=== PATIENT | male | born 1950 | race Caucasian/White ===

== ENCOUNTER → 2017-01-04 | Outpatient (CLI) | payer OTHER ==
[~2017-01-04] VITALS: Ht 190.5 cm; Wt 122.5 kg
[~2017-01-04] MED LIST: ALDACTONE25 MG PO; ANORO ELLIPTA1 EACH IH; ASPIR 8181 MG PO; ASPIRIN81 M2 PO; ATORVASTATIN CA40 MG PO; AUGMENTIN 875875 M1 PO; BENICAR20 MG PO; CARVEDILOL25 MG PO; CEPHALEXIN 500500 M1 PO; COLACE100 MG PO; DEMADEX20 MG PO; FARXIGA10 MG PO; FLEXERIL PO; FLOMAX0.4 MG PO; GLUCOSAMINE CH1 EACH PO; GLYXAMBI 10 MG1 EACH PO; HYDROCODON-ACE1 EAC7 PO; IBUPROFEN 800800 M1 PO; JANUVIA50 MG PO; KEFLEX250 MG PO; LISINOPRIL20 MG PO; LORTAB 5 MG/5001 TA1; METFORMIN HCL500 MG PO; MEXILETINE 150150 MG PO; NEURONTIN 300300 M1 PO; PACERONE 200 M200 M1 PO; POTASSIUM20 PO; PROAIR HFA8.5 GM INH; PROTONIX 20 MG20 M1 PO; SAVAYSA60 MG PO; SIMVASTATIN40 MG PO; TRAMADOL 50 MG50 MG PO; VITAMIN D1000 UNIT PO; ZANAFLEX4 M1 PO; ZANTAC 150MG T150 MG PO
--- NOTE | ~2017-01-04 | CATHLAB ---
[facility] [place] [address] INVASIVE PROCEDURE REPORT Name: KALAANIBAL DANIELE Room #: REG [facility]#: [id number] Admission: 01/04/17 Attend Phys: Joni Panchal MD Discharge: Date of : 54 Date of Service: 01/04/17 0925 Report #: [id number] THIS REPORT FOR: //name// CC: Joni Fischer DATE OF SERVICE: 01/04/2017 CARDIAC CATHETERIZATION REPORT INDICATION: Ventricular tachycardia. Full risks, benefits and alternatives of cardiac catheterization were explained to the patient. All questions were answered. Informed consent was obtained. A Barbeau test was performed on the right radial artery. A 5-Malagasy sheath was inserted into the right radial artery via a modified Seldinger technique. Nitroglycerin and verapamil were injected through the sheath. Heparin 5000 units were given through a peripheral IV. The left main artery is a large caliber vessel, with no flow-limiting lesions. The LAD has a total occlusion in the proximal segment. The distal segment of the LAD is partially filled via collateral circulation. This is unchanged from prior procedures. The left circumflex artery is a lftcfcid-dz-umrwk-sized caliber vessel, dominant as it supplies the PDA. There is mild disease in the left circumflex artery. There are 3 obtuse marginal arteries of moderate-sized caliber. The first OM has jzjn-nt-mhzffwra disease proximally, 40%. The second and third obtuse marginal arteries are patent with mild disease. The left PDA has a total occlusion at the ostium. The mid and distal segments of the left PDA are filled via collateral circulation. This is unchanged from prior procedures. The RCA is a small, nondominant vessel with a total occlusion proximally. This is unchanged from prior procedures. The LVEDP is approximately 40 mmHg. The patient tolerated the procedure without any complications. There is no gradient across the outflow tract. A ventriculogram was not performed in view of elevated creatinine level. IMPRESSION: 1. Total occlusion of the proximal left anterior descending with partial [facility] [address] [place] [address] INVASIVE PROCEDURE REPORT Name: ANIBAL ARMENDARIZ Room #: REG [facility]#: [id number] Admission: 01/04/17 Attend Phys: Joni Panchal MD Discharge: Date of : 54 Date of Service: 01/04/17 0925 Report #: [id number] collateral flow. This is unchanged from prior procedures. 2. Left dominant system with patent obtuse marginal arteries. 3. A 100% occlusion of a small left posterior descending artery, with collateral filling of the distal segment. This is unchanged from prior procedures. 4. Total occlusion of a small, nondominant right coronary artery, unchanged from prior procedures. 5. Recommend medical therapy. <ELECTRONICALLY SIGNED> By: Joni Panchal MD 01/05/17 0752 0925 1217 MD carina Grewal
[2017-01-04 07:00] VITALS: BP 138/77
== END | disposition home or self-care (01) ==
LOC: CATH 06:33
DX: I25.10 Atherosclerotic heart disease of native coronary artery without angina pectoris (principal); I65.21 Occlusion and stenosis of right carotid artery; J44.9 Chronic obstructive pulmonary disease, unspecified; I10 Essential (primary) hypertension; E78.00 Pure hypercholesterolemia, unspecified; I48.92 Unspecified atrial flutter; K21.9 Gastro-esophageal reflux disease without esophagitis; E11.9 Type 2 diabetes mellitus without complications; I25.2 Old myocardial infarction; F17.210 Nicotine dependence, cigarettes, uncomplicated

== ENCOUNTER → 2017-06-20 | Outpatient (CLI) | payer OTHER ==
--- NOTE | ~2017-06-20 | 2DMMODE ---
[facility] [place] [address] 2 D/M-MODE ECHOCARDIOGRAM Name: KALAANIBAL DANIELE Room #: REG [facility]#: [id number] Admission: 06/20/17 Attend Phys: Pradeep Peterson Discharge: Date of : 54 Date of Service: 06/20/17 1238 Report #: [id number] THIS REPORT FOR: //name// APPROVED REPORT Study performed: 06/20/2017 11:04:51 EXAM: Comprehensive 2D, Doppler, and color-flow Echocardiogram Patient Location: Out-Patient Status: routine BSA: 2.54 HR: 62 bpm BP: 158/88 mmHg Rhythm: Pacemaker Other Information Study Quality: GoodAdequate Technically limited study due to body habitus, lung disease. Indications COPD Pacemaker Cardiomyopathy Hx: PVD. Echo Enhancing Agent Indication: Endocardial border delineation Agent(s) / Amount(s) Used: Optison 3 cc 2D Dimensions RVDd: 49.34 mm LVEF(%): 49.24 (>50%) IVSd: 13.27 (7-11mm) LVOT Diam: 24.47 (18-24mm) LVDd: 61.32 mm PWd: 13.01 (7-11mm) LVDs: 45.73 (25-40mm) Aortic Root: 34.41 mm Stuart's LVEF: 49.24 % Volumes Left Atrial Volume (Systole) Single Plane 4CH: 130.60 mL Single Plane 2CH: 116.67 mL LA ESV Index: 55.00 mL/m2 [facility] [address] [place] [address] 2 D/M-MODE ECHOCARDIOGRAM Name: ANIBAL ARMENDARIZ Room #: REG CL Tom[facility]#: [id number] Admission: 06/20/17 Attend Phys: Pradeep Baychonndc Discharge: Date of : 54 Date of Service: 06/20/17 1238 Report #: [id number] Aortic Valve AoV Peak Eliu.: 1.15 m/s AO Peak Gr.: 5.25 mmHg LVOT Max P.03 mmHg LVOT Max V: 0.87 m/s SAMI Vmax: 3.57 cm2 Mitral Valve E/A Ratio: 0.8 MV Decel. Time: 261.09 ms MV E Max Eliu.: 0.78 m/s MV A Eliu.: 0.98 m/s MV PHT: 75.72 ms IVRT: 92.27 ms Pulmonary Valve PV Peak Eliu.: 1.02 m/s PV Peak Gr.: 4.35 mmHg Pulmonary Vein P Vein S: 0.52 m/s P Vein A: 0.25 m/s P Vein D: 0.45 m/s P Vein A Dur.: 143.0 msec P Vein S/D Ratio: 1.16 Tricuspid Valve TR Peak Eliu.: 2.65 m/s RAP Estimate: 5.00 mmHg TR Peak Gr.: 28.06 mmHg PA Pressure: 33.00 mmHg Left Ventricle Left ventricle is dilated. Mild concentric left ventricular hypertrophy. Left ventricular systolic function is severely decreased. LVEF is 30%. Grade I - abnormal relaxation pattern. Right Ventricle Right ventricle is dilated. The right ventricular systolic function is normal. Device lead is present in the right ventricle. Atria Left atrium is moderately dilated. Right atrium is mildly dilated. Aortic Valve The aortic valve is normal in structure. No aortic regurgitation is present. There is no aortic valvular stenosis. Mitral Valve There is mitral annular calcification. The mitral valve is normal in [address] [address] 2 D/M-MODE ECHOCARDIOGRAM Name: KALAANIBAL SANABRIA [id number] Admission: 06/20/17 Attend Phys: [facility] Discharge: Date of : 54 Date of Service: 06/20/17 1238 Report #: [id number] structure and function. Mild mitral regurgitation. No evidence of mitral valve stenosis. Tricuspid Valve The tricuspid valve is normal in structure. Trace tricuspid regurgitation with an estimated PAP of 33 mmHg. Pulmonic Valve Pulmonic valve is not well visualized. There is no pulmonic valvular regurgitation. Great Vessels The aortic root is normal in size. IVC is normal in size and collapses >50% with inspiration. Pericardium There is no pericardial effusion. <Conclusion> Left ventricle is dilated. Left ventricular systolic function is severely decreased. LVEF is 30%. Right ventricle is dilated. Device lead is present in the right ventricle. Left atrium is moderately dilated. Right atrium is mildly dilated. The aortic valve is normal in structure. There is mitral annular calcification. The mitral valve is normal in structure and function. Mild mitral regurgitation. The tricuspid valve is normal in structure. Trace tricuspid regurgitation with an estimated PAP of 33 mmHg. Pulmonic valve is not well visualized. <ELECTRONICALLY SIGNED> By: Albino Bettencourt MD 06/20/17 1238 1238 1238 Albino Bettencourt MD /INF
== END ==
LOC: CV 10:50
DX: I25.5 Ischemic cardiomyopathy (principal)

== ENCOUNTER 2017-11-05 11:40 | Inpatient (IN) | payer OTHER ==
[2017-11-05] VITALS (7 sets, daily range): BP systolic 130–180; BP diastolic 56–89
[~2017-11-05] VITALS: Ht 190.5 cm; Wt 128.1 kg
--- NOTE | ~2017-11-05 | EKG ---
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 : 1950 Requested By: Sierra Ramirez Order Number: [id number] MD: Brian Carodza Measurements Intervals [place] Rate: 66 P: 38 NH: 182 QRS: -34 QRSD: 131 T: 138 QT: 440 QTc: 461 Interpretive Statements Sinus rhythm Left bundle branch block Compared to ECG 08/27/2015 14:22:50 Left bundle-branch block now present Electronically Signed On 11-05-2017 14:17:20 NURSE ESTHETICIAN by Brian Cardoza [email or web address] <ELECTRONICALLY SIGNED> By: Brian Cardoza MD, [facility] 11/05/17 1417 1151 1151 Brian Cardoza MD, FACC /EPI
--- NOTE | ~2017-11-05 | HC ---
[facility] [place] [address] CONSULTATION Name: ANIBAL ARMENDARIZ Room #: 203-P [facility] IN M.R.#: [id number] Admission: 11/05/17 Attend Phys: Casa Arriaga MD Discharge: 11/07/17 Date of : 54 Report #: [id number] THIS REPORT FOR: //name// CC: ILDA physician/PCP Casa Arriaga DATE OF SERVICE: 11/06/2017 REASON FOR CONSULTATION: ICD shock. HISTORY OF PRESENT ILLNESS: The patient is a patient who I follow with Dr. Panchal in clinic. He has a history of an ischemic cardiomyopathy, status post [employer] ICD as well as ventricular arrhythmias. In the past, he was on mexiletine and had breakthrough, so he was switched to amiodarone and in May, he had an ICD shock for VT, VF. He presents again after being at home and having a syncopal episode. The patient reports that he has been profoundly weak with back pain and was trying to get into his truck, got very angry and was trying to crawl back to the house when he passed out and got shocked. Device interrogation demonstrates that this correlated with an episode of VT with a cycle length of 360 milliseconds, which degenerated VF, failed ATP and then required an ICD shock with successful roman catholic of sinus rhythm. The patient denies any chest pain. He does have chronic shortness of breath. He denies PND or orthopnea. He denies any other syncopal episodes. PAST MEDICAL HISTORY: 1. Coronary artery disease. 2. Ischemic cardiomyopathy. 3. Diabetes. 4. Peripheral vascular disease. 5. Hypertension. 6. Paroxysmal AFib. 7. COPD. 8. Chronic renal insufficiency. SOCIAL HISTORY: He still smokes. FAMILY HISTORY: Noncontributory. ALLERGIES: None. MEDICATIONS: Include amiodarone 400 a day, Eliquis, aspirin, Lipitor, Coreg 25 a day, Entresto, Aldactone and torsemide. REVIEW OF SYSTEMS: A 12-point review of systems was performed and was negative other than what I mentioned above. [facility] [address] [place] [address] CONSULTATION Name: KALAANIBAL Room #: 203-P [facility] IN ..#: [id number] Admission: 11/05/17 Attend Phys: Casa Arriaga MD Discharge: 11/07/17 Date of : 54 Report #: [id number] PHYSICAL EXAMINATION: VITAL SIGNS: Temperature 36.7, pulse 70, respirations 18, blood pressure 110/57, and sats 97%. GENERAL: He is in no acute distress. HEENT: Oropharynx is clear. NECK: Supple. No thyromegaly. HEART: Regular rate and rhythm with normal S1 and S2. No S3, S4. LUNGS: Clear to auscultation bilaterally. ABDOMEN: Soft, nontender, and nondistended. EXTREMITIES: There is no clubbing, cyanosis, or edema. NEUROLOGIC: Cranial nerves 2-12 are intact. LABS: White count 12, hemoglobin 14, and platelets 101. Chemistries: Sodium 141, potassium 4.3, BUN 41, and creatinine 2.5. Troponins are negative times 2. ASSESSMENT AND PLAN: 1. Recurrent ventricular tachycardia. 2. ICD shock. 3. Coronary artery disease. 4. Ischemic cardiomyopathy. 5. Acute on chronic renal insufficiency. In summary, the patient is a 67-year-old with severe ischemic cardiomyopathy and recurrent ventricular arrhythmias despite amiodarone therapy. I recommended that general cardiology optimize his cardiac meds including beta blockers and Entresto. With regards to his ventricular arrhythmias, we will continue with amiodarone 400 mg a day and add a low dose mexiletine 200 mg twice a day. We will continue to follow. <ELECTRONICALLY SIGNED> By: Pradeep Peterson MD 12/07/17 1753 0825 1018 Pradeep Peterson MD /nt
--- NOTE | ~2017-11-05 | HC ---
[facility] [place] [address] CONSULTATION Name: ANIBAL ARMENDARIZ Room #: 203-P [facility] IN M.R.#: [id number] Admission: 11/05/17 Attend Phys: Casa Arriaga MD Discharge: 11/07/17 Date of : 54 Report #: [id number] THIS REPORT FOR: //name// CC: FAM physician/PCP Casa Arriaga DATE OF SERVICE: 11/06/2017 ATTENDING PHYSICIAN: Dr. Panchal. REASON FOR CONSULTATION: Acute on chronic kidney disease. HISTORY OF PRESENT ILLNESS: This 67-year-old gentleman with severe ischemic cardiomyopathy and diabetic nephropathy, has had recurrent ventricular fibrillation with AICD discharge most recently yesterday, was admitted to the hospital with creatinine, which at baseline apparently is about 2 was up to 3.4, but back down to 2.5 today. Of note, the patient had been started on diclofenac over the last 2 weeks and that was stopped yesterday. PAST MEDICAL HISTORY: Longstanding diabetes mellitus, he has got peripheral neuropathy, but no retinopathy; diabetic renal disease, followed by a aircraft engine assembler in his home of [place], [place]. He does not know about proteinuria. He has severe peripheral arterial disease and is a heavy cigarette smoker. He has had multiple stents in both lower extremity arterial systems and right carotid endarterectomy as well. He also has a history of hypertension. PAST SURGICAL HISTORY: He has had cholecystectomy as well. HOME MEDICATIONS: Include metformin 1000 mg b.i.d., spironolactone 12.5 mg daily, which is on hold; vitamin D3, empagliflozin and linagliptin for diabetes, amiodarone 400 mg daily, Lyrica 50 mg t.i.d., Eliquis 5 mg b.i.d., and Entresto 24/ one daily and ranitidine. He is also on Voltaren 75 mg b.i.d., carvedilol 25 mg b.i.d., he has been taking 60 mg daily of his torsemide recently, Flomax 0.4 mg daily, Lipitor 40 mg daily, and aspirin 81 mg daily. FAMILY HISTORY: Strongly positive for diabetes including a brother with diabetes, diabetic nephropathy, and kidney transplant. SOCIAL HISTORY: Heavy smoker, retired, disabled. REVIEW OF SYSTEMS: GENERAL: He has been feeling okay. EYES: Vision is okay. No problems. ENT: Hearing okay. Swallows okay. ENDOCRINE: Positive for the diabetes. RESPIRATORY: Somewhat easily [place] [address] CONSULTATION Name: ANIBAL ARMENDARIZ Room #: 203-P [facility] IN M.R.#: [id number] Admission: 11/05/17 Attend Phys: Casa Arriaga MD Discharge: 11/07/17 Date of : 54 Report #: [id number] CARDIAC: He has had the AICD discharges with the VFib including a presyncopal episode yesterday. He also has had history of AFib, on chronic Eliquis as well as ischemic cardiomyopathy with coronary artery occlusions, but no stents or bypass. NEUROLOGIC: He has got severe peripheral neuropathy in the legs and now in the hands as well. MUSCULOSKELETAL: He has got very bad back pain and sciatica with spinal stenosis and that is the reason for the diclofenac. PHYSICAL EXAMINATION: GENERAL: This is a reasonably comfortable appearing gentleman, lucid, giving a good history. SKIN: Shows some discoloration with dryness in the distal lower extremities. SKELETAL: Shows him to be well developed, well nourished, a bit overweight. HEENT: Extraocular movements are full. Vision is intact. No scleral icterus. Hearing is intact. Mucous membranes are moist. Tongue, buccal mucosa benign. NECK: Supple. Right carotid endarterectomy scar is noted. No lymphadenopathy or carotid bruits. CHEST: Clear to auscultation. HEART: Regular. ABDOMEN: Soft and nontender without bruits, masses or organomegaly. EXTREMITIES: Peripheral pulses are greatly diminished. NEUROLOGIC: Shows numbness in the feet. LABORATORY DATA: Urinalysis showed no proteinuria. Sodium 141, potassium 4.3, chloride 106, bicarbonate 25, BUN 41, down from 55, and creatinine 2.5, down from 3.4. ASSESSMENT: 1. Acute on chronic kidney disease, appears to have underlying chronic kidney disease, partially cardiorenal, partially likely due to diabetes and hypertension, but he did not have proteinuria on his initial urinalysis. He has been worked up and evaluated by a aircraft engine assembler down in [place] and I will not redo or replicate previous workup. Obviously, the creatinine has been up quite a bit due to the diclofenac that has now been stopped and we talked about that at length, otherwise volume status appears to be pretty good. No changes were made at the current time. 2. Diabetes with peripheral neuropathy. 3. History of hypertension. 4. Recurrent ventricular fibrillation with AICD discharges. 5. Severe ischemic cardiomyopathy. 6. Atrial fibrillation, on Eliquis. <ELECTRONICALLY SIGNED> By: Aristides Alexis MD 11/09/17 0823 0949 1203 Aristides Alexis MD /nt
--- NOTE | ~2017-11-05 | D ---
[facility] [place] [address] DISCHARGE SUMMARY Name: ANIBAL ARMENDARIZ Room #: 203-P [facility] IN M.R.#: [id number] Admission: 11/05/17 Attend Phys: Casa Arriaga MD Discharge: 11/07/17 Date of : 54 Report #: [id number] THIS REPORT FOR: //name// CC: ILDA physician/PCP Casa Arriaga DATE OF SERVICE: 11/11/2017 HISTORY OF PRESENT ILLNESS: The patient is a 67-year-old man with complicated cardiac history, including history of AFib, CHF with systolic dysfunction, status post AICD placement. The patient had brief syncopal episode before coming here. AICD interrogation revealed V-tach and V-fib, followed by AICD discharge. The patient could not recall events, please refer to the admission H and P for details. HOSPITALIZATION COURSE: The patient was hospitalized. Numerical Control Programmer was consulted. Amiodarone dose was increased. The patient was also started on mexiletine 200 mg b.i.d. The patient did well and had no acute events during the hospital stay. He has remained completely asymptomatic. The patient was also found to have renal failure. He has chronic kidney disease, but creatinine was much higher at this time, at 3.4. Diclofenac was discontinued. Torsemide and valsartan were on hold. Currently, creatinine is 2.3. Given the patient's renal failure and heart failure, metformin is discontinued as this medication is contraindicated. The patient is also on empagliflozin, that is also not advised in patients with renal failure and low GFR. This medication is discontinued as well. The patient is prescribed third gentamicin, which he will continue taking. Currently, the patient's condition is stable, as documented in the patient's chart. Physical examination is also acceptable. DISCHARGE DIAGNOSES: 1. Ventricular fibrillation and ventricular tachycardia, automatic implantable cardioverter defibrillator discharge. As noted, the patient is started on mexiletine, amiodarone was increased to 400 mg a day. No arrhythmias detected while in the hospital. 2. Brief syncopal episode due to above, resolved. 3. Acute renal failure on chronic kidney disease stage 3. Current creatinine is 2.3, from 3.6 on admission. Diclofenac is discontinued. Metformin is discontinued. In fact, gliflozin is on hold. SECONDARY DIAGNOSES: Include congestive heart failure with systolic dysfunction, recent ejection fraction of 30%. Status post automatic implantable [facility] [address] [place] [address] DISCHARGE SUMMARY Name: ANIBAL ARMENDARIZ Room #: 203-P [facility] IN .R.#: [id number] Admission: 11/05/17 Attend Phys: Casa Arriaga MD Discharge: 11/07/17 Date of : 54 Report #: [id number] cardioverter defibrillator placement, coronary artery disease, atrial fibrillation, anticoagulated with Eliquis, carotid stenosis, diabetes mellitus type 2, hypertension, dyslipidemia, peripheral vascular disease, tobacco abuse and dependence. DISCHARGE MEDICATIONS: Please refer to medication reconciliation list. As noted, amiodarone dose is increased to 400 mg a day. The patient is started on mexiletine 200 mg b.i.d., which is a new medication. Diclofenac and metformin are discontinued. In fact, gliflozin is on hold. The patient is started on Tradjenta. DISPOSITION: The patient is discharged home. FOLLOWUP PLAN: 1. Follow up with roof plumber in about 2 weeks. 2. Follow up with envelope sealing machine operator and primary care doctor as advised. I spent greater than 30 minutes to coordinate the patient's discharge from the hospital. <ELECTRONICALLY SIGNED> By: Casa Arriaga MD 11/12/17 1906 0844 1004 Casa Arriaga MD /nt
--- NOTE | ~2017-11-05 | HC ---
[facility] [place] [address] CONSULTATION Name: ANIBAL ARMENDARIZ Room #: 203-P ADM IN M.R.#: [id number] Admission: 11/05/17 Attend Phys: Casa Arriaga MD Discharge: Date of : 54 Report #: [id number] THIS REPORT FOR: //name// CC: [facility] physician/PCP Casa Arriaga DATE OF SERVICE: 11/05/2017 INDICATION: Ventricular fibrillation. HISTORY OF PRESENT ILLNESS: This is a 67-year-old gentleman with a history of NH, ischemic cardiomyopathy, paroxysmal AFib, ventricular fibrillation, COPD, tobacco use, PVD, presenting with an episode of syncope. The patient is unclear of the events. He knows that he was trying to get up into his pickup truck, but fell and tried to crawl back into his home after that. The remaining details are unclear to the patient. There has been no change in his clinical status, offers no complaints of angina or dyspnea. However, his functional capacity is limited by sciatica. He has been using a cane for assistance with walking. He is scheduled to get an evaluation for possible steroid injection versus surgery. Interrogation of his ICD reveals an episode of ventricular fibrillation requiring one shock, with conversion to sinus rhythm. PAST MEDICAL HISTORY: Catheterization revealed severe occlusion in the LAD and a left PDA. Had V-fib requiring ICD shock in 11/2016. Cardiac catheterization at that time revealed no change in his coronary anatomy. EP recommended changing mexiletine to amiodarone. In 05/2017, he had another V-fib episode requiring ICD shock. History of ischemic cardiomyopathy, EF in the 30% range. Diabetes mellitus, PVD, hypertension, hypercholesterolemia, paroxysmal atrial fibrillation and COPD. He smokes 1 pack of cigarettes per day. Chronic kidney disease with a baseline creatinine in 2.0 range. ALLERGIES: None. MEDICATIONS: Cardiac medications include amiodarone 400 mg daily, Eliquis 5 mg b.i.d., aspirin once a day, Lipitor 40 mg daily, Coreg 25 mg twice a day, Entresto 24/26 mg twice a day, Aldactone 25 mg daily, torsemide 20 mg 3 times a day. SOCIAL HISTORY: Positive tobacco use. FAMILY HISTORY: Negative for premature CAD. REVIEW OF SYSTEMS: A full 10-point review of systems performed. Only the pertinent positives and negatives are described in the HPI. PHYSICAL EXAMINATION: [facility] [address] [place] [address] CONSULTATION Name: ANIBAL ARMENDARIZ Room #: 203-P [facility] IN [facility]#: [id number] Admission: 11/05/17 Attend Phys: Casa Arriaga MD Discharge: Date of : 54 Report #: [id number] VITAL SIGNS: Stable. GENERAL APPEARANCE: He is an overweight male in no acute respiratory distress. HEAD AND EYES: Normocephalic. Sclerae anicteric. ENT: Oral mucosa moist. NECK: Supple, no JVD. LUNGS: Diminished breath sounds diffusely. CARDIAC: Distant heart sounds, S1, S2 positive. ABDOMEN: Protuberant, soft, nontender. EXTREMITIES: No major joint deformities. No cyanosis, wearing compression stockings Positive for edema. NEUROLOGIC: Alert and oriented x 3. LABORATORY VALUES: Troponin is negative x 2. White count 12.2, hemoglobin 14.0. Sodium is 139, potassium is 5.1, creatinine is 3.4. IMPRESSION AND PLAN: 1. Ventricular fibrillation, ventricular tachycardia, requiring ICD shock. He will be admitted to CCU on telemetry. He will continue with amiodarone at 400 mg for now. He will get an EP consultation in a.m., possibly adding another antiarrhythmic. 2. Coronary artery disease with known occlusion of the LAD and left PDA. Stable with no anginal episodes. His last cardiac catheterization in 11/2016 revealed no change in his coronary anatomy. 3. Ischemic cardiomyopathy, stable with Entresto. He does not report any changes in his symptoms, no evidence for congestion. 4. PAF, stable with Eliquis. 5. Tobacco use, complete smoking cessation is discussed. 6. Uiocs-my-bqcuejx renal insufficiency, agree with Nephrology consultation. <ELECTRONICALLY SIGNED> By: Joni Panchal MD 11/06/17 0821 1718 [id number] Joni Panchal MD /nt
--- NOTE | ~2017-11-05 | EKG ---
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: : 1950 Requested By: Pradeep Peterson Order Number: [id number] MD: Brian Cardoza Measurements Intervals [place] Rate: 60 P: MD: 176 QRS: -28 QRSD: 143 T: 151 QT: 469 QTc: 469 Interpretive Statements Sinus rhythm Left bundle branch block Baseline wander in lead(s) V6 Compared to ECG 11/05/2017 11:51:57 No significant change was found Electronically Signed On 11-08-2017 8:17:06 TOUR OPERATOR by Brian Cardoza [email or web address] <ELECTRONICALLY SIGNED> By: Brian Cardoza MD, FACC 11/08/17 0817 0851 0851 Brian Cardoza MD, [facility] /EPI
[2017-11-05] MEDS ORDERED: ELIQUIS5 MG PO (11:49)
[2017-11-05] MEDS ORDERED: LYRICA 50 MG50 MG PO (11:49)
[2017-11-05] MEDS ORDERED: ZANTAC 150MG T150 MG PO (11:50)
[2017-11-05] MEDS ORDERED: ENTRESTO 24 MG1 EACH PO (11:51)
[2017-11-05] MEDS ORDERED: DICLOFENAC SODI75 MG PO (11:51)
[2017-11-05] MEDS ORDERED: ANORO ELLIPTA1 EACH INH (11:51)
[2017-11-05 11:55] LABS: ABSOLUTE NEUTROPHILS 9.8 thou/uL (1.4-8.2); BASOPHILS 0.8 % (0.0-2.0); EOSINOPHILS 4.7 % (0.0-3.0); LYMPHOCYTES 8.8 % (24.0-44.0); MCH 32.1 pg (26.0-34.0); MCHC 33.3 g/dL (28.0-37.0); MCV 96.3 fL (80.0-100.0); MONOCYTES 5.4 % (1.0-8.0); PLATELET COUNT 101 thou/uL (150-400); POLYS 80.3 % (36.0-66.0); RBC 4.36 mil/uL (4.50-6.00); RDW 14.1 % (10.5-14.5); WBC 12.2 thou/uL (4.0-11.0)
[2017-11-05 12:02] LABS: ANION GAP 11 mmol/L (7-16); BUN 55 mg/dL (7-18); CALCIUM 8.8 mg/dL (8.5-10.1); CHLORIDE 105 mmol/L (98-107); CO2 23 mmol/L (21-32); CREATININE 3.4 mg/dL (0.7-1.3); GLUCOSE 198 mg/dL (74-106); POTASSIUM 5.1 mmol/L (3.5-5.1); SODIUM 139 mmol/L (136-145)
[2017-11-05 12:11] LABS: ALBUMIN 3.5 g/dL (3.4-5.0); SGOT 26 U/L (15-37); SGPT 45 U/L (30-65); TOTAL BILIRUBIN 0.3 mg/dL (<0.1-1.0); TOTAL PROTEIN 6.8 g/dL (6.4-8.2); TROPONIN-I < 0.04 ng/mL (<0.06)
[2017-11-05 13:36] LABS: URINE BILIRUBIN NEGATIVE (Negative); URINE BLOOD NEGATIVE (Negative); URINE CLARITY CLEAR; URINE COLOR YELLOW; URINE GLUCOSE-RANDOM* 2+ (Negative); URINE KETONES NEGATIVE (Negative); URINE LEUKOCYTES NEGATIVE (Negative); URINE NITRITE NEGATIVE (Negative); URINE PROTEIN (DIPSTICK) NEGATIVE (Negative); URINE UROBILINOGEN 0.2 E.U./dl (0.2-1.0)
[2017-11-06 03:30] VITALS: BP 121/68
[2017-11-06 03:35] LABS: BASOPHILS 0.9 % (0.0-2.0); EOSINOPHILS 4.9 % (0.0-3.0); HEMATOCRIT 41.9 % (42.0-52.0); HEMOGLOBIN 13.9 gm/dL (14.0-18.0); LYMPHOCYTES 15.6 % (24.0-44.0); MCH 31.9 pg (26.0-34.0); MCV 96.5 fL (80.0-100.0); MONOCYTES 6.2 % (1.0-8.0); PLATELET COUNT 110 thou/uL (150-400); POLYS 72.4 % (36.0-66.0); RBC 4.34 mil/uL (4.50-6.00); WBC 9.7 thou/uL (4.0-11.0)
[2017-11-06 03:43] LABS: CALCIUM 8.8 mg/dL (8.5-10.1); CREATININE 2.5 mg/dL (0.7-1.3); POTASSIUM 4.3 mmol/L (3.5-5.1)
[2017-11-06 06:44] LABS: LARGE PLATELETS OCCASIONAL
[2017-11-06 08:47] VITALS: BP 110/57
[2017-11-06 11:55] VITALS: BP 115/55
[2017-11-06 15:48] VITALS: BP 138/80
[2017-11-06 19:40] VITALS: BP 124/64
[2017-11-07 03:17] LABS: CALCIUM 8.9 mg/dL (8.5-10.1); CREATININE 2.3 mg/dL (0.7-1.3); POTASSIUM 4.6 mmol/L (3.5-5.1)
[2017-11-07 04:11] VITALS: BP 95/62
[2017-11-07 08:31] VITALS: BP 119/57
[2017-11-07] MEDS ORDERED: PACERONE 200 M200 MG PO (08:48)
[2017-11-07] MEDS ORDERED: MEXILETINE 200 MG PO (08:48)
[2017-11-07] MEDS ORDERED: TRADJENTA5 MG PO (08:48)
[2017-11-07 09:50] VITALS: BP 119/57
== END 2017-11-07 12:12 | disposition home or self-care (01) | DRG 309 ==
LOC: ER 11:40 → EROBS 15:17 → 2N 15:17
PROVIDERS: Internal Medicine Cardiovascular Disease; Internal Medicine Endocrinology, Diabetes & Metabolism; Physician Assistant
PROC: 4B02XTZ Measurement of Cardiac Defibrillator, External Approach (ICD-10-PCS; principal; 2017-11-07)
DX: I49.01 Ventricular fibrillation (principal); N17.9 Acute kidney failure, unspecified; I13.0 Hypertensive heart and chronic kidney disease with heart failure and stage 1 through stage 4 chronic kidney disease, or unspecified chronic kidney disease; I50.40 Unspecified combined systolic (congestive) and diastolic (congestive) heart failure; J44.9 Chronic obstructive pulmonary disease, unspecified; E78.00 Pure hypercholesterolemia, unspecified; K21.9 Gastro-esophageal reflux disease without esophagitis; I48.0 Paroxysmal atrial fibrillation; I25.5 Ischemic cardiomyopathy; E11.51 Type 2 diabetes mellitus with diabetic peripheral angiopathy without gangrene; E11.22 Type 2 diabetes mellitus with diabetic chronic kidney disease; I25.10 Atherosclerotic heart disease of native coronary artery without angina pectoris; E11.42 Type 2 diabetes mellitus with diabetic polyneuropathy; F17.210 Nicotine dependence, cigarettes, uncomplicated; N18.3 Chronic kidney disease, stage 3 (moderate); I65.29 Occlusion and stenosis of unspecified carotid artery; E78.5 Hyperlipidemia, unspecified; Z95.810 Presence of automatic (implantable) cardiac defibrillator; Z79.01 Long term (current) use of anticoagulants; Z83.3 Family history of diabetes mellitus; Z84.1 Family history of disorders of kidney and ureter; I25.2 Old myocardial infarction; Z90.49 Acquired absence of other specified parts of digestive tract; Z79.899 Other long term (current) drug therapy; Z71.6 Tobacco abuse counseling
CPT/HCPCS: 10194

== ENCOUNTER 2019-03-19 17:14 | Inpatient (IN) | payer OTHER ==
[~2019-03-19] VITALS: Ht 190.5 cm; Wt 156.5 kg
[~2019-03-19 17:14] MED LIST changes: +ANORO ELLIPTA1 EACH INH; +DICLOFENAC SODI75 MG PO; +ELIQUIS5 MG PO; +ENTRESTO 24 MG1 EACH PO; +LYRICA 50 MG50 MG PO; +MEXILETINE 200 MG PO; +PACERONE 200 M200 MG PO; +TRADJENTA5 MG PO
--- NOTE | 2019-03-19 17:29 | NUR ---
REC DIRECT ADMIT AROUND 1730 FROM ED STAFF, A&0X4, USES WALKER AND WALKING STICK, HAS PACEMAKER PLACED APPROX 2013 AND REPLACEMENT IN 2016. PM/DEFIBRILLATOR. AWAITING PHYSICIAN CALL AND IV TEAM. PT STATES HE'S HERE FOR DIURESIS, SEE INTERVENTIONS FOR PARTICULAR ASSESSMENTS. BLE 3-4+, ROOM AIR. PT STATES HE'S HAD AN EKG AND IT WAS NORMAL, HAS BLACK RIGHT WRIST SPLIT ON FOR ARTHRITIS, HAS DOGTAG MEDICAL ON. 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
[2019-03-19] MEDS ORDERED: CARVEDILOL3.125 MG (18:11)
[2019-03-19] MEDS ORDERED: FLEXI JOINT TA1 EAC1 (18:12)
[2019-03-19] MEDS ORDERED: JANUVIA25 MG PO (18:13)
[2019-03-19] MEDS ORDERED: FLOMAX0.4 MG PO (18:15)
[2019-03-19] MEDS ORDERED: NEURONTIN 300300 M1 (18:15)
[2019-03-19] MEDS ORDERED: ZANAFLEX4 MG PO (18:16)
[2019-03-19] MEDS ORDERED: NOVOLOG100 UNIT/1 (18:17)
[2019-03-19] MEDS ORDERED: ULTRAM 50MG TAB50 MG PO (18:17)
[2019-03-19] MEDS ORDERED: PAXIL10 MG SUBQ (18:18)
[2019-03-19] MEDS ORDERED: ASPIR 8181 MG PO (18:19)
--- NOTE | 2019-03-19 18:43 | NUR ---
PT LEFT FOR XRAY W/VOLUNTEER, TELE MONITOR SHOWED US STRIP THAT LOOKED LIKE POLYMORPHIC VTACH, DEPT CALLED AND PT WAS FINE/ASYMPTOMATIC. STRIP PRINTED OUT AND IN CHART, WILL ALERT NOC STAFF ON NEPHROLOGY CALLING TO INQUIRE RE: PT AND TO CALL IF THERE ARE ANY URGENT NEEDS AND HE'D BE IN THE MORNING, AND TO WATCH PT'S TELE STRIPS FOR ACCURACY. FAMILY LEFT FOR [place]. J[place]ELYN WITH CODE TO CALL. PT RETURNED FROM XRA AT 1845, FEELS FINE, DIDN'T FEEL ANYTHING AMISS.
--- NOTE | 2019-03-19 19:42 | NUR ---
cardiolody notified of rhythms.
[2019-03-19 20:00] VITALS: BP 154/57
[2019-03-19 20:11] LABS: ALBUMIN 3.6 g/dL (3.4-5.0); CALCIUM 8.7 mg/dL (8.5-10.1); CREATININE 2.1 mg/dL (0.7-1.3); POTASSIUM 4.5 mmol/L (3.5-5.1); TOTAL BILIRUBIN 0.4 mg/dL (<0.1-1.0); TOTAL PROTEIN 7.6 g/dL (6.4-8.2)
[2019-03-20] VITALS: BP 132/69
[2019-03-20 04:00] VITALS: BP 105/48
[2019-03-20 04:16] LABS: CHOLESTEROL 111 mg/dL (<200); HDL CHOLESTEROL 35 mg/dL (>40); LDL CHOLESTEROL 65 mg/dL (<100); TC:HDL 3.2 Ratio (Not establshd); TRIGLYCERIDE 59 mg/dL (<150); VLDL 12 mg/dL (<40)
[2019-03-20 04:19] LABS: SERUM ASSESSMENT Clear
--- NOTE | 2019-03-20 05:43 | NUR ---
PATIENTS CARES WERE ASSUMED AT SHIFT CHANGE. PATIENT WAS ASSESSED AND MEDS WERE PASSED. PATIENT HAS HAD A LARGE VOID THROUGH THE NIGHT. HOURLY ROUNDING WAS DONE. PATIENT DID APPER TO BE SLEEPING. THE BED IS IN A LOW AND LOCKED POSITION.
[2019-03-20 08:46] VITALS: BP 130/89
[2019-03-20 10:08] LABS: GLYCOHEMOGLOBIN (HGB A1C) 6.2 % (4.8-5.6)
[2019-03-20 10:19] LABS: CALCIUM 8.8 mg/dL (8.5-10.1); CREATININE 2.2 mg/dL (0.7-1.3)
[2019-03-20 12:35] VITALS: BP 149/72
[2019-03-20 12:50] LABS: URINE CREATININE-RANDOM* 20.6 mg/dL
[2019-03-20 12:57] LABS: PROT/CREAT RATIO 0.3; URINE PROTEIN-RANDOM* <6 mg/dL (<11.9)
[2019-03-20 16:00] VITALS: BP 134/59
[2019-03-20 19:59] VITALS: BP 122/56
[2019-03-21 05:03] VITALS: BP 117/85
[2019-03-21 05:24] LABS: ABSOLUTE NEUTROPHILS 5.2 thou/uL (1.4-8.2); BASOPHILS 0.8 % (0.0-2.0); EOSINOPHILS 4.2 % (0.0-3.0); HEMATOCRIT 30.5 % (42.0-52.0); HEMOGLOBIN 10.1 gm/dL (14.0-18.0); LYMPHOCYTES 13.1 % (24.0-44.0); MCH 30.8 pg (26.0-34.0); MCHC 33.2 g/dL (28.0-37.0); MCV 92.7 fL (80.0-100.0); MONOCYTES 8.2 % (1.0-8.0); PLATELET COUNT 168 thou/uL (150-400); POLYS 73.7 % (36.0-66.0); RBC 3.29 mil/uL (4.50-6.00); RDW 16.3 % (10.5-14.5)
[2019-03-21 05:41] LABS: ALBUMIN 3.3 g/dL (3.4-5.0); CALCIUM 8.5 mg/dL (8.5-10.1); CREATININE 2.4 mg/dL (0.7-1.3); PHOSPHORUS 4.2 mg/dL (2.5-4.9); POTASSIUM 4.2 mmol/L (3.5-5.1)
--- NOTE | 2019-03-21 06:18 | NUR ---
ASSESSMENTS CHARTED. PATIENT MOVING BETWEEN BED AND CHAIR FOR COMFORT. UP WITH ASSIST. PATIENT KEPT LEGS ELEVATED DURING SHIFT. CONTINUES TO DIURESE WITH 2500 OUT AND 400 IN. PLAN OF CARE TO CONTINUE CURRENT TREATMENT, MAINTAIN FALL PRECAUTIONS.
--- NOTE | 2019-03-21 07:42 | EKG ---
[place] [address] [address] [facility] [place] [address] ELECTROCARDIOGRAM REPORT Name: ANIBAL ARMENDARIZ Room #: 207-P ADM IN M.R.#: [id number] ������������������ Admission: 03/19/19 ������������������ Attend Phys: Irasema Yu MD Discharge: ������������������ Date of : 54 Report #: [id number] ����������������������������������������������������������������� [id number] THIS REPORT FOR: //name// [facility] Test Date: 2019-03-20 Test Time: 07:09:04 Pat Name: ANIBAL AMRENDARIZ Department: Room: 207 P Gender: M Supervisor Mail Carriers: DARIAN : 1950 Requested By: Cara Kennedy Order Number: [id number] MD: Brian Cardoza Measurements Intervals [place] Rate: 67 P: 62 NE: 194 QRS: -20 QRSD: 139 T: 170 QT: 461 QTc: 487 Interpretive Statements Sinus rhythm Left bundle branch block Compared to ECG 11/07/2017 08:51:56 No significant changes Electronically Signed On 03-21-2019 7:42:12 CDT by Brian Cardoza [email or web address] ��������������������������������������������� <ELECTRONICALLY SIGNED> ���������������������������������������� By: Brian Cardoza MD, [facility] ��������������������������������������������� 03/21/19 0742 8 8 Brian Cardoza MD, [facility] /EPI
[2019-03-21 08:26] VITALS: BP 100/49
[2019-03-21 12:00] VITALS: BP 98/48
--- NOTE | 2019-03-21 12:03 | HC ---
[facility] [place] [address] CONSULTATION Name: ANIBAL ARMENDARIZ Room #: 207-P ADM IN M.R.#: [id number] Admission: 03/19/19 ������������������ Attend Phys: Irasema Yu MD Discharge: ������������������ Date of : 54 Report #: [id number] THIS REPORT FOR: //name// CC: ILDA physician/PCP Irasema Yu DATE OF SERVICE: 03/20/2019 NEPHROLOGY CONSULTATION REASON FOR CONSULTATION: Chronic kidney disease. HISTORY OF PRESENT ILLNESS: The patient is well known to our service with known diabetic nephropathy and chronic kidney disease, has had a course over the last couple of months of increasing fluid retention, orthopnea and shortness of breath with exertion and is admitted. His creatinine is 2.1, which is actually lower than it was when we last saw him 16 months ago here in the hospital. PAST MEDICAL HISTORY: Longstanding diabetes mellitus, severe peripheral neuropathy, but no known retinopathy, ischemic cardiomyopathy with ejection fraction that was 30% when he was here last year. He has had recurrent ventricular fibrillation with an AICD, peripheral neuropathy is rather severe; peripheral arterial disease. He was a former heavy cigarette smoker and has had multiple stents to his peripheral arterial system and a right carotid endarterectomy. He has also had a previous cholecystectomy. HOME MEDICATIONS: As listed include amiodarone 400 mg daily, Eliquis 5 mg b.i.d., aspirin 81 mg daily, Lipitor 40 mg daily, carvedilol 3.125 mg just once a day, vitamin D3, Entresto 24/ once a day, torsemide just 10 mg a day, mexiletine 200 mg daily. FAMILY HISTORY: Strongly positive for diabetes including a brother who had a diabetic nephropathy and a kidney transplant. SOCIAL HISTORY: He was a former heavy smoker, but he quit last year. REVIEW OF SYSTEMS: GENERAL: He has been weak and easily winded. EYES: Vision has really been okay. ENT: Hearing okay, swallows okay. No mouth sores. ENDOCRINE: Positive for diabetes. RESPIRATORY: Very easily short-winded with orthopnea. CARDIAC: No recent palpitations or angina. GASTROINTESTINAL: No nausea, vomiting or diarrhea. GENITOURINARY: Reasonably good stream without dysuria. NEUROLOGIC: Severe peripheral neuropathy in the legs and also in his hands. [facility] [address] [place] [address] CONSULTATION Name: ANIBAL ARMENDARIZ Room #: [address] [place] [address] IN .R.#: [id number] Admission: 03/19/19 ������������������ Attend Phys: Irasema Yu MD Discharge: ������������������ Date of : 54 Report #: [id number] MUSCULOSKELETAL: He has had bad back pain. PHYSICAL EXAMINATION: GENERAL: Reasonably comfortable-appearing gentleman, sitting up in bed at the current time. SKIN: Unremarkable. SKELETAL: Well developed, well nourished. HEENT: Extraocular movements are full. Vision intact. No scleral icterus. Hearing intact. Mucous membranes moist. NECK: Supple. Right carotid endarterectomy scar is noted. CHEST: Shows diminished breath sounds at the bases. HEART: Regular, but distant. ABDOMEN: Soft and nontender. EXTREMITIES: Show very tight 4+ peripheral edema, worse on the left than the right. LABORATORY DATA: Urinalysis is pending. Hemoglobin is pending. Sodium 137, potassium 4.5, chloride 101, bicarbonate 28, creatinine 2.1, BUN 28. ASSESSMENT AND PLAN: 1. He has diabetic nephropathy. I will quantitate his proteinuria. We will adjust his medications. He is massively volume overloaded. We will add some spironolactone to his IV Lasix and I will increase the dosage on that. 2. Diabetes mellitus with neuropathy and nephropathy. 3. Severe ischemic cardiomyopathy with massive volume overload. 4. Severe peripheral arterial disease. 5. History of cigarette smoking. 6. History of paroxysmal atrial fibrillation. 7. History of ventricular arrhythmias with automatic implantable cardioverter-defibrillator. ��������������������������������������������� <ELECTRONICALLY SIGNED> ���������������������������������������� By: Aristides Alexsi MD ��������������������������������������������� 03/21/19 1203 0931 1221 Aristides Alexis MD /nt
[2019-03-21 16:29] VITALS: BP 133/56
--- NOTE | 2019-03-21 16:45 | NUR ---
SPOKE WITH ARYA SINGER FROM CARDIOLOGY ABOUT Pt AND BANDAGING DUE TO Pt IS IN CHF AT THIS TIME. CARDIOLOGY FEEL Pt IS NOT MOLLY ENOUGH FOR COMPRESSION BANDAGING AT THIS TIME. WILL CK BACK WITH THEM ON SUNDAY. IF CARDIOLOGY FEELS IT Pt IS READY TO BE BANDAGE WILL START ON SUNDAY.
--- NOTE | 2019-03-21 17:07 | NUR ---
Cm assessment completed at bedside. Pt is a&ox4 and indicates that he lives alone in his home in [place]. He has a rwalker and a cane for home use. He has a ramp to enter his home and a scooter. He often stays with his sign other of many years in [place]. He has a good support system with his nephew and sign other. He goes to [employer] [facility] the [facility] in [place]. 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 He is feeling better and hoping to get another 20 lbs of fluid off before going home. He is being seen by therapy. He denies any dc concerns and does not feel he will need hh f/u at dc. Cm role introduced. The pt is on room air. No cm interventions indicated at this time. No weekend dc anticipated. Will remain available should dc needs arise.
--- NOTE | 2019-03-21 18:03 | NUR ---
ASSESSMENT CHARTED. PT ALERT AND ORIENTED. VSS. DENIED HAVING PAIN OR DISCOMFORT. UP IN THE CHAIR THIS SHIFT. EVALUATED BY PT/OT. NO CONCERNS AT THIS TIME. WILL CONTINUE TO MONITOR.
[2019-03-21 19:58] VITALS: BP 113/47
[2019-03-22 04:43] VITALS: BP 103/41
[2019-03-22 05:19] LABS: CALCIUM 8.5 mg/dL (8.5-10.1); CREATININE 2.6 mg/dL (0.7-1.3); POTASSIUM 4.2 mmol/L (3.5-5.1)
[2019-03-22 05:30] LABS: ALBUMIN 3.2 g/dL (3.4-5.0); CALCIUM 8.5 mg/dL (8.5-10.1); CREATININE 2.6 mg/dL (0.7-1.3); PHOSPHORUS 4.6 mg/dL (2.5-4.9)
[2019-03-22 05:32] LABS: POTASSIUM 4.7 mmol/L (3.5-5.1)
--- NOTE | 2019-03-22 07:19 | NUR ---
ASSESSMENTS CHARTED. PATIENT GOT A BED ADULT SERVICES LIBRARIAN PUT ON BED SO HE SLEPT BETTER. HE GOT BARIATRIC SOCKS THAT FIT OVER HIS SWOLLEN FEET AND HAVE TRACTION ON THEM. CONTINUING TO DIURESE WHILE SELF MONITORING HIS INTAKE. PLAN OF CARE IS TO CONINUE DIURESING AND MAINTAINING FALL PRECAUTIONS.
[2019-03-22 07:24] VITALS: BP 91/58
[2019-03-22 12:39] VITALS: BP 126/60
[2019-03-22 16:34] VITALS: BP 116/55
--- NOTE | 2019-03-22 17:25 | NUR ---
PT ALERT AND ORIENTED. DENIED HAVING PAIN. UP IN THE CHAIR THIS SHIFT. AMBULATED X2. PROGRESSING WELL TOWARD DISCHARGE GOAL. WILL CONTINUE TO MONITOR.
[2019-03-22 20:30] VITALS: BP 109/83
--- NOTE | 2019-03-23 03:58 | NUR ---
ASSESSMENTS CHARTED. PATIENT CONTINUES TO DIURESE. PATIENT WALKED TWICE DURING SHIFT. EACH WALK WAS ONE LAP AROUND UNIT. PLAN IS TO CONTINUE TO DIURESE.
[2019-03-23 04:15] VITALS: BP 118/43
[2019-03-23 05:29] LABS: ALBUMIN 3.3 g/dL (3.4-5.0); CALCIUM 8.5 mg/dL (8.5-10.1); PHOSPHORUS 4.6 mg/dL (2.5-4.9); POTASSIUM 4.1 mmol/L (3.5-5.1)
[2019-03-23 07:51] VITALS: BP 102/50
[2019-03-23] MEDS ORDERED: ALLOPURINOL 10100 M1 PO (11:04)
[2019-03-23] MEDS ORDERED: TORSEMIDE20 MG PO (11:05)
[2019-03-23] MEDS ORDERED: FLOMAX0.4 MG PO ×2 (11:07→11:08)
[2019-03-23] MEDS ORDERED: ENTRESTO 24 MG1 EACH PO (11:12)
[2019-03-23] MEDS ORDERED: LANTUS100 UNIT/M SUBQ (11:14)
[2019-03-23 11:59] VITALS: BP 102/54
[2019-03-23 16:22] VITALS: BP 123/64
--- NOTE | 2019-03-23 17:18 | NUR ---
PT ALERT AND ORIENTED. VSS. PLEASANT AND COOPERATIVE WITH CARES. UP IN THE CHAIR THIS SHIFT. AMBULATED X3 THIS SHIFT. DENIED HAVING PAIN OR DISCOMFORT. PROGRESSING WELL TOWARD DISCHARGE GOAL. WILL CONTINUE TO MONITOR.
[2019-03-23 17:26] VITALS: BP 123/64
[2019-03-23 19:31] VITALS: BP 119/67
[2019-03-24 03:13] VITALS: BP 119/58
[2019-03-24 08:14] LABS: ALBUMIN 3.5 g/dL (3.4-5.0); CALCIUM 9.1 mg/dL (8.5-10.1); CREATININE 2.8 mg/dL (0.7-1.3); PHOSPHORUS 4.4 mg/dL (2.5-4.9); POTASSIUM 4.4 mmol/L (3.5-5.1)
--- NOTE | 2019-03-24 08:43 | NUR ---
ASSESSMENTS CHARTED. PATIENT WALKED UNIT ONCE DURING SHIFT. ONLY NEEDED ASSISTANCE GETTING OUT OF RECLINER. STILL DIURESING ON PO TORSIMIDE. PLAN IS TO GO HOME SOON.
[2019-03-24 08:44] VITALS: BP 100/45
--- NOTE | 2019-03-24 12:21 | NUR ---
DISCHARGE NOTE: SW reviewed chart and spoke with nursing and attending physician. Pt is medically stable for discharge home today. No SW discharge needs identified, but is available to assist should needs arise.
[2019-03-24] MEDS ORDERED: MEXILETINE HCL200 M1 PO (12:28)
[2019-03-24] MEDS ORDERED: DEMADEX20 MG PO (12:28)
[2019-03-24] MEDS ORDERED: PACERONE 200 M200 M1 PO (12:28)
[2019-03-24] MEDS ORDERED: COREG6.25 MG PO (12:28)
[2019-03-24] MEDS ORDERED: SPIRONOLACTONE25 M1 PO (12:28)
[2019-03-24] MEDS ORDERED: FLOMAX0.4 MG PO (12:28)
[2019-03-24 13:51] VITALS: BP 100/45
--- NOTE | 2019-03-24 15:52 | NUR ---
ASSESSMENT CHARTED - MEDS PER NOV - NO CO'S OF PAIN OR NAUSEA - RENY DIET AND FLUIDS. UP IN ROOM WITH USE OF WALKER - SEEN BY PHYS AND OCC THERAPY THIS AM - PT HOME THIS AFTERNOON - INSTRUCTION RE HOME MEDS/ CARE AND FOLLOW GIVEN TO PATIENT STATED UNDERSTANDING OF INSTRUCTION GIVEN. PT LEFT UNIT VIA WHEEL CHAIR - HOME VIA PVT VEHICLE ACCOMPANIED BY NIECE. NO CO'S AT TIME OF D/C. MONITOR AND IV REMOVED PRIOR TO D/C.
== END 2019-03-24 15:45 | disposition home or self-care (01) | DRG 291 ==
LOC: 2N 17:14 → ENTRNSPT 03-24 15:33 → EDTRNSPTSTS 03-24 15:37 → 2N 03-24 15:45
PROVIDERS: Hospitalist; Internal Medicine Nephrology; Nurse Practitioner; ADMIT Internal Medicine
DX: I13.0 Hypertensive heart and chronic kidney disease with heart failure and stage 1 through stage 4 chronic kidney disease, or unspecified chronic kidney disease (principal); I50.23 Acute on chronic systolic (congestive) heart failure; N17.9 Acute kidney failure, unspecified; I47.2 Ventricular tachycardia; D68.59 Other primary thrombophilia; E11.22 Type 2 diabetes mellitus with diabetic chronic kidney disease; N18.9 Chronic kidney disease, unspecified; E11.42 Type 2 diabetes mellitus with diabetic polyneuropathy; I25.5 Ischemic cardiomyopathy; E11.51 Type 2 diabetes mellitus with diabetic peripheral angiopathy without gangrene; I25.10 Atherosclerotic heart disease of native coronary artery without angina pectoris; I48.0 Paroxysmal atrial fibrillation; E78.5 Hyperlipidemia, unspecified; J44.9 Chronic obstructive pulmonary disease, unspecified; E03.9 Hypothyroidism, unspecified; K59.00 Constipation, unspecified; Z87.891 Personal history of nicotine dependence; Z95.820 Peripheral vascular angioplasty status with implants and grafts; Z79.899 Other long term (current) drug therapy; Z95.0 Presence of cardiac pacemaker; Z82.49 Family history of ischemic heart disease and other diseases of the circulatory system; Z90.49 Acquired absence of other specified parts of digestive tract; Z95.810 Presence of automatic (implantable) cardiac defibrillator; Z83.3 Family history of diabetes mellitus; Z84.1 Family history of disorders of kidney and ureter
CPT/HCPCS: 10081

== ENCOUNTER 2019-04-26 08:04 | Inpatient (IN) | payer OTHER ==
[~2019-04-26] VITALS: Ht 190.5 cm; Wt 146.1 kg
[~2019-04-26 08:04] MED LIST changes: +ALLOPURINOL 10100 M1 PO; +CARVEDILOL3.125 MG; +COREG6.25 MG PO; +FLEXI JOINT TA1 EAC1; +JANUVIA25 MG PO; +LANTUS100 UNIT/M SUBQ; +MEXILETINE HCL200 M1 PO; +NEURONTIN 300300 M1; +NOVOLOG100 UNIT/1; +PAXIL10 MG SUBQ; +SPIRONOLACTONE25 M1 PO; +TORSEMIDE20 MG PO; +ULTRAM 50MG TAB50 MG PO; +ZANAFLEX4 MG PO
[2019-04-26] MEDS ORDERED: NEURONTIN 300M300 M2 PO (09:26)
[2019-04-26] MEDS ORDERED: ALBUTEROL2.5 MG/3 M INH (10:49)
[2019-04-26 13:16] LABS: HEMATOCRIT 32.3 % (42.0-52.0); HEMOGLOBIN 10.8 gm/dL (14.0-18.0); MCH 31.2 pg (26.0-34.0); MCHC 33.3 g/dL (28.0-37.0); MCV 93.6 fL (80.0-100.0); RBC 3.45 mil/uL (4.50-6.00); RDW 15.6 % (10.5-14.5); WBC 7.2 thou/uL (4.0-11.0)
[2019-04-26 13:25] LABS: CALCIUM 9.3 mg/dL (8.5-10.1); CREATININE 3.2 mg/dL (0.7-1.3); POTASSIUM 4.3 mmol/L (3.5-5.1)
[2019-04-26 15:55] VITALS: BP 138/59
--- NOTE | 2019-04-26 17:59 | NUR ---
PATIENT ADMITTED THIS MORNING AT 0900. PATIENT HERE FOR FIBULA FRACTURE AFTER FALLING THREE TIMES YESTERDAY IN HIS HOME. PATIENT IN MODERATE PAIN THAT HAS BEEN WELL CONTROLLED WITH CURRENT PAIN MANAGEMENT, TRAMADOL. PATIENT HAS HISTORY OF CAD, V FIB, S/P AICD, DM, DIABETIC NEUROPATHY, CKD, NEPHROPATHY, SYNCOPE, GENERALIZED WEAKNESS, AND FALLS. PATIENT CREATININE BASELINE 4, PATIENT BNP 2000. PATIENT SAID HIS BLOOD SUGAR IS WELL CONTROLLED AND DID NOT NEED SLIDING SCALE INSULIN DURING DINNER.
[2019-04-26 19:19] VITALS: BP 103/55
--- NOTE | 2019-04-26 23:34 | NUR ---
ASSUMED CARE OF THE PT AT 2300. ALERT ET ORIENTED X 3. MAKES NEEDS KNOWN. HEART RATE REGULAR, LUNGS CLEAR BILATERALLY, RESP., EVEN AND UNLABORED. +BS HEARD IN ALL 4 QUADRANTS. POST SPLINT AND ALTAGRACIA WRAP IN PLACE TO RIGHT LEG. BILATERALLY FEET ARE SWOLLEN THIS PM. CALL LIGHT WITHIN REACH.
--- NOTE | 2019-04-27 01:07 | NUR ---
THE PT HAD EMESIS X 1 THIS EVENING, REQUESTED SPRITE AND CRACKERS, WHICH WERE GIVEN TO THE PT. CALL LIGHT WITH REACH.
--- NOTE | 2019-04-27 04:11 | NUR ---
THIS TOWEL INSPECTOR WAS NOTIFIED THAT THE PT WAS TO BE TRANSFERRED TO ROOM 419. REPORT WAS CALLED TO THE RN ON 4E. THE PT WILL BE MOVED TO ROOM 419 ALONG WITH HIS BELONGINGS.
[2019-04-27 04:33] LABS: HEMATOCRIT 29.4 % (42.0-52.0); HEMOGLOBIN 9.8 gm/dL (14.0-18.0); MCHC 33.4 g/dL (28.0-37.0); MCV 92.9 fL (80.0-100.0); RBC 3.17 mil/uL (4.50-6.00); RDW 15.4 % (10.5-14.5); WBC 7.2 thou/uL (4.0-11.0)
[2019-04-27 04:48] LABS: CALCIUM 8.7 mg/dL (8.5-10.1); POTASSIUM 4.4 mmol/L (3.5-5.1)
[2019-04-27 05:00] VITALS: BP 141/66
[2019-04-27 06:25] VITALS: BP 126/64
[2019-04-27 14:37] VITALS: BP 126/64
[2019-04-27 14:57] VITALS: BP 126/64
--- NOTE | 2019-04-27 15:30 | NUR ---
PT ASSESSED AT START OF SHIFT. STATES LEG FEELING MUCH BETTER. DR. MARINELLI IN THIS AM AND ORDERED WALKING BOOT W/ WT BEARING TOLERATED. PT TO F/U W/ ORTHO IN [place] IN 7-10 DAYS. PT ALSO CONTINUING W/ FOOT CARE. ENC TO GET SOME PT FOR STRENGTHENING FROM HIS DOCTOR.
--- NOTE | 2019-04-28 07:11 | NUR ---
RECEIVED OT ORDER FOR EVALUATION. PATIENT DISCHARGED PRIOR TO OT BEING INITIATED.
--- NOTE | 2019-04-30 11:51 | HC ---
[facility] [place] [address] CONSULTATION Name: ANIBAL ARMENDARIZ Room #: 419-P [facility] IN .R.#: [id number] Admission: 04/26/19 ������������������ Attend Phys: Abraham Mathis MD Discharge: 04/27/19 ������������������ Date of : 54 Report #: [id number] THIS REPORT FOR: //name// CC: Blair Mathis DATE OF SERVICE: 04/27/2019 ORTHOPEDIC CONSULTATION CHIEF COMPLAINT: Left ankle pain. HISTORY OF PRESENT ILLNESS: The patient is a pleasant 69-year-old gentleman seen today with his family present for evaluation of his left ankle. He reportedly fell 3 times yesterday and sustained an injury to his left ankle. He was seen at [facility] and was admitted from there to the hospitalist service here at [facility]. He also notes to have a plantar based wound on his foot for approximately the last month. He has just as of this past week started seeing the wound care team at [facility]. He reports a history of a great toe ulcer on that side approximately a year ago that was able to be healed up with the care and treatment. He has multiple medical comorbidities including diabetic neuropathy. PAST MEDICAL HISTORY: Significant for carotid stenosis, AFib, frequent falls, fibula fracture, ambulates with a walker, ICD placement, syncope, V-tach, CHF with systolic dysfunction, COPD, cholecystectomy, type 2 diabetes, hypertension, dyslipidemia, peripheral vascular disease, tobacco dependence. ALLERGIES: No known drug allergies. CURRENT MEDICATIONS: Please see current MAR. 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 Denies alcohol use. PHYSICAL EXAMINATION: GENERAL: The patient is alert and oriented, answering questions appropriately. VITAL SIGNS: Most recent temperature 37.0, pulse 66, BP 126/64. EXTREMITIES: Documented ulcer into the dermal tissues is noted with measurements taken with photographs present in hospital records. He is tender over the lateral malleolus, mildly so, nontender over the medial ankle structure, nontender over the syndesmosis. He denies any more proximal based leg pain or pain about the fibula. Mild swelling of the ankle and foot are noted. He has diminished sensation to light touch. No pain about the hip or knee. Radiographs in a splint reveal possible oblique nondisplaced fracture of the distal fibula with some mild degenerative changes noted in the ankle as well [address] [address] CONSULTATION Name: ANIBAL ARMENDARIZ Room #: 419-P [facility] IN ..#: [id number] Admission: 04/26/19 ������������������ Attend Phys: Abraham Mathis MD Discharge: 04/27/19 ������������������ Date of : 54 Report #: [id number] as changes in his distal tibial diaphysis consistent with a spinal fracture he had approximately 30 years ago. LABORATORY DATA: Reviewed. IMPRESSION: 1. Left distal fibular fracture, mild ankle osteoarthritis, history of distal tibia fracture. 2. Multiple medical comorbidities. 3. Foot wound. PLAN: From an orthopedic standpoint, the patient could be placed into a Cam walker and allowed to bear weight as tolerated. This was communicated with his nurse. I would recommend he continue to utilize the walker for assistance, physical therapy could also see and evaluate the patient. More importantly would be the medical management of his diabetes and continued an ongoing wound care for his ulcer to avoid potential complications related to this including more deep seated infection that could lead to loss of the limb. The patient is aware of this. He would like to continue with his wound care team at [facility]. The patient may follow up with myself in 7-10 days post-discharge for reevaluation of his fracture. ��������������������������������������������� <ELECTRONICALLY SIGNED> ���������������������������������������� By: Sharif Rich MD ��������������������������������������������� 04/30/19 1151 1105 2129 Sharif Rich MD /nt
== END 2019-04-27 15:29 | disposition home or self-care (01) | DRG 563 ==
LOC: 3W 08:04 → 4E 04-27 06:09
PROVIDERS: ADMIT Hospitalist
PROC: 2W3RXYZ Immobilization of Left Lower Leg using Other Device (ICD-10-PCS; principal; 2019-04-26)
DX: S82.832A Other fracture of upper and lower end of left fibula, initial encounter for closed fracture (principal); I50.22 Chronic systolic (congestive) heart failure; E11.40 Type 2 diabetes mellitus with diabetic neuropathy, unspecified; I48.91 Unspecified atrial fibrillation; J44.9 Chronic obstructive pulmonary disease, unspecified; E78.5 Hyperlipidemia, unspecified; E11.51 Type 2 diabetes mellitus with diabetic peripheral angiopathy without gangrene; M19.072 Primary osteoarthritis, left ankle and foot; I11.0 Hypertensive heart disease with heart failure; W18.39XA Other fall on same level, initial encounter; I25.5 Ischemic cardiomyopathy; S91.309A Unspecified open wound, unspecified foot, initial encounter; Y92.89 Other specified places as the place of occurrence of the external cause; Y93.89 Activity, other specified; Y99.8 Other external cause status; Z79.82 Long term (current) use of aspirin; Z79.84 Long term (current) use of oral hypoglycemic drugs; Z79.4 Long term (current) use of insulin; Z79.899 Other long term (current) drug therapy; Z91.81 History of falling; Z95.810 Presence of automatic (implantable) cardiac defibrillator; Z87.891 Personal history of nicotine dependence; Z79.01 Long term (current) use of anticoagulants
CPT/HCPCS: 10779

== ENCOUNTER → 2019-05-29 | Outpatient (CLI) | payer OTHER ==
[~2019-05-29] MED LIST changes: +ALBUTEROL2.5 MG/3 M INH; +NEURONTIN 300M300 M2 PO
== END ==
LOC: CAT 10:57
DX: I65.23 Occlusion and stenosis of bilateral carotid arteries (principal); R90.82 White matter disease, unspecified; G93.89 Other specified disorders of brain

== ENCOUNTER → 2019-11-07 | Outpatient (CLI) | payer OTHER | LOC: SJCVC 11:19 | DX: I45.4 Nonspecific intraventricular block (principal); R94.31 Abnormal electrocardiogram [ECG] [EKG]; I25.10 Atherosclerotic heart disease of native coronary artery without angina pectoris; I25.5 Ischemic cardiomyopathy; I48.0 Paroxysmal atrial fibrillation; Z72.0 Tobacco use; Z79.82 Long term (current) use of aspirin; Z79.899 Other long term (current) drug therapy ==

== ENCOUNTER 2019-11-24 22:33 | Inpatient (IN) | payer OTHER ==
[~2019-11-24] VITALS: Ht 190.5 cm; Wt 152.0 kg
[2019-11-25 00:26] VITALS: BP 104/53
[2019-11-25 01:25] LABS: BE(vivo) -1.6 mmol/L (-2 to +3); HCO3 25.3 mmol/L (22.0-26.0); PCO2 52.4 mmHg (35.0-45.0); PO2 247.3 mmHg (80.0-100.0); sO2 99.5 % (92.0-98.0)
[2019-11-25 01:26] LABS: pH 7.302 (7.360-7.450)
--- NOTE | 2019-11-25 04:25 | NUR ---
PT ARRIVED FROM [facility] FOR ELEVATED TROPONIN AND BL PNA. ON ARRIVAL PT WAS IN RESP. DISTRESS, RT NOTIFIED, BIPAP INITATED IMMEDIATELY. FIRESTOPPER TECHNICIAN MANA NOTIFIED. PT COURSE AND WHEEZING. BREATHING TREATMENTS ORDERED WELL. LASIX 80 MG, SOLUMEDROL [address] MITCHELL NOTIFIED, NO ORDERS OTHER THAN TO REPEAT ABGs IN THE MORNING. PT HAD PACEMAKER DIFIB AND KEEPS GOING INTO [facility], DENIES PACEMAKER SHOCKING HIM, DENIES CHEST PAIN. DR. ALVARES NOTIFIED ABOUT PT RHYTHM, AMIO GTT, 150 BOLUS AND 1MG CONTINOUS ORDERED. PT CURRENTLY STILL IN RESP DISTRESS. BREATHING TREATMENTS SCHEDULED. WILL CONTINUE TO MONITOR.
[2019-11-25 04:29] VITALS: BP 103/52
[2019-11-25 04:30] LABS: URINE BILIRUBIN NEGATIVE (Negative); URINE BLOOD NEGATIVE (Negative); URINE CLARITY CLEAR; URINE COLOR YELLOW; URINE GLUCOSE-RANDOM* NEGATIVE (Negative); URINE KETONES TRACE (Negative); URINE LEUKOCYTES-REFLEX NEGATIVE (Negative); URINE NITRITE-REFLEX NEGATIVE (Negative); URINE PROTEIN (DIPSTICK) NEGATIVE (Negative); URINE SPECIFIC GRAVITY 1.025 (1.005-1.035); URINE UROBILINOGEN 0.2 E.U./dl (0.2-1.0)
[2019-11-25 04:57] VITALS: BP 103/52
[2019-11-25 05:30] LABS: ABSOLUTE NEUTROPHILS 14.9 thou/uL (1.4-8.2); BASOPHILS 0.2 % (0.0-2.0); HEMOGLOBIN 12.2 gm/dL (14.0-18.0); LYMPHOCYTES 3.5 % (24.0-44.0); MCH 31.4 pg (26.0-34.0); MCHC 32.1 g/dL (28.0-37.0); MCV 98.1 fL (80.0-100.0); MONOCYTES 1.7 % (1.0-8.0); PLATELET COUNT 159 thou/uL (150-400); POLYS 94.6 % (36.0-66.0); RBC 3.87 mil/uL (4.50-6.00); RDW 18.1 % (10.5-14.5); WBC 15.8 thou/uL (4.0-11.0)
[2019-11-25 05:51] LABS: CHOLESTEROL 132 mg/dL (<200); HDL CHOLESTEROL 46 mg/dL (>40); LDL CHOLESTEROL 73 mg/dL (<100); TC:HDL 2.9 Ratio (Not establshd); TRIGLYCERIDE 69 mg/dL (<150); VLDL 14 mg/dL (<40)
[2019-11-25 05:53] LABS: ALBUMIN 3.3 g/dL (3.4-5.0); CALCIUM 8.4 mg/dL (8.5-10.1); CREATININE 4.4 mg/dL (0.7-1.3); MAGNESIUM 2.1 mg/dL (1.8-2.4); POTASSIUM 5.3 mmol/L (3.5-5.1); SERUM ASSESSMENT Clear; TOTAL BILIRUBIN 0.6 mg/dL (<0.1-1.0); TOTAL PROTEIN 7.2 g/dL (6.4-8.2)
--- NOTE | 2019-11-25 08:25 | NUR ---
ORDERS RECEIVED FOR PT EVAL AND TREAT. Pt CODED THIS MORNING AND PASSED PRIOR TO PT EVALUATION ABLE TO BE COMPLETED.
--- NOTE | 2019-11-25 08:25 | EKG ---
[facility] [place] [address] ELECTROCARDIOGRAM REPORT Name: ANIBAL ARMENDARIZ Room #: 210-P ADM IN M.R.#: [id number] Admission: 11/25/19 Attend Phys: Abraham Mathis MD Discharge: Date of : 54 Report #: [id number] THIS REPORT FOR: cc: ILDA - [place] family physician/PCP ILDA - [place] family physician/PCP Brian Cardoza MD [facility] THIS REPORT FOR: //name// [facility] Test Date: 2019-11-25 Test Time: 00:56:34 Pat Name: ANIBAL ARMENDARIZ Department: Room: 210 P Gender: M Electrical Accessories I Assembler: [email or web address] : 1950 Requested By: Aristides Shipley Order Number: [id number] MD: Brian Cardoza Measurements Intervals [place] Rate: 94 P: 74 [place]: 164 QRS: -27 QRSD: 179 T: 157 QT: 419 QTc: 525 Interpretive Statements Sinus rhythm Left bundle branch block Baseline wander in lead(s) I,aVR Compared to ECG 03/20/2019 07:09:04 No significant changes Electronically Signed On 11-25-2019 8:24:01 FINANCIAL INVESTMENT MANAGER by Brian Cardoza [email or web address] <ELECTRONICALLY SIGNED> By: Brian Cardoza MD, [facility] 11/25/19 0824 0056 0056 Brian Cardoza MD, [facility] /EPI
--- NOTE | 2019-11-25 08:26 | NUR ---
patient prior to evaluation.
== END 2019-11-25 06:41 | DRG 193 ==
LOC: 2N 22:33
PROVIDERS: Nurse Practitioner; ADMIT Hospitalist
PROC: 5A12012 Performance of Cardiac Output, Single, Manual (ICD-10-PCS; principal; 2019-11-25)
PROC: 5A09357 Assistance with Respiratory Ventilation, Less than 24 Consecutive Hours, Continuous Positive Airway Pressure (ICD-10-PCS; principal; 2019-11-25)
DX: J18.9 Pneumonia, unspecified organism (principal); J96.01 Acute respiratory failure with hypoxia; I42.8 Other cardiomyopathies; I50.22 Chronic systolic (congestive) heart failure; J44.0 Chronic obstructive pulmonary disease with (acute) lower respiratory infection; I13.0 Hypertensive heart and chronic kidney disease with heart failure and stage 1 through stage 4 chronic kidney disease, or unspecified chronic kidney disease; E78.5 Hyperlipidemia, unspecified; I48.91 Unspecified atrial fibrillation; E11.51 Type 2 diabetes mellitus with diabetic peripheral angiopathy without gangrene; I25.10 Atherosclerotic heart disease of native coronary artery without angina pectoris; M19.90 Unspecified osteoarthritis, unspecified site; F17.210 Nicotine dependence, cigarettes, uncomplicated; E11.22 Type 2 diabetes mellitus with diabetic chronic kidney disease; E11.40 Type 2 diabetes mellitus with diabetic neuropathy, unspecified; I25.5 Ischemic cardiomyopathy; I48.0 Paroxysmal atrial fibrillation; Z86.73 Personal history of transient ischemic attack (TIA), and cerebral infarction without residual deficits; Z93.0 Tracheostomy status; Z79.899 Other long term (current) drug therapy; Z79.4 Long term (current) use of insulin; Z79.51 Long term (current) use of inhaled steroids; Z79.82 Long term (current) use of aspirin; Z95.5 Presence of coronary angioplasty implant and graft; Z79.01 Long term (current) use of anticoagulants; Z95.820 Peripheral vascular angioplasty status with implants and grafts; Z90.49 Acquired absence of other specified parts of digestive tract; Z82.49 Family history of ischemic heart disease and other diseases of the circulatory system; Z95.810 Presence of automatic (implantable) cardiac defibrillator
CPT/HCPCS: 10081